=== PATIENT | female | born 1985 | race African-American/Black ===

== ENCOUNTER 2017-03-12 20:16 | Inpatient (IN) | payer OTHER ==
[~2017-03-12] VITALS: Ht 182.9 cm; Wt 122.0 kg
[~2017-03-12 20:16] MED LIST: MAGNSOL2 PO; MIRA3350 PO
[2017-03-13] MEDS ORDERED: ONDANSETRON HCL 4 MG/2 ML VIAL IV PUSH PRN
[2017-03-13] MEDS ORDERED: SODIUM CHLORIDE 0.9% FLUSH 10 ML FLUSH IV FLUSH PRN
[2017-03-13 00:11] VITALS: BP 124/78; PULSE 88; RESP 19; TEMP 96.2; O2SAT 93
[2017-03-13] MEDS: LACTATED RINGER'S 1000 ML INJ 1,000 ML IV SCH ×3 (00:16→16:00)
[2017-03-13] MEDS: KETOROLAC TROMETHAMINE 30 MG/ML (IVP) VIAL IV PUSH PRN ×3 (00:27→14:55)
[2017-03-13] MEDS: ACETAMINOPHEN 1000 MG/100 ML VIAL IV SCH ×4 (00:37→17:45)
[2017-03-13 04:00] VITALS: BP 122/66; PULSE 97; RESP 19; TEMP 98.2; O2SAT 96
--- NOTE | 2017-03-13 04:59 | MH ---
cc: TORRI ARAYA M.D. DATE OF ADMISSION: 03/12/2017 REASON FOR ADMISSION Small bowel obstruction. BRIEF HISTORY This is a very pleasant 31-year-old woman who over the last 5 years or so as had intermittent episodes of abdominal pain, nausea, emesis. They usually resolve fairly quickly. The last couple of days she has had increasing severe upper abdominal pain with distension and nausea with emesis of whatever she has eaten or drank. She works drawing patient's blood and when she was leaning over she got the feeling of severe sharp stabbing pain and the feeling of nausea that she might throw up. She was seen in the emergency department in [place] yesterday and felt she was constipated. They gave her MiraLax. She had continued worsening symptoms. She returned there where a CT scan was done which showed findings suggestive of small bowel obstruction with proximal dilated loops of small bowel, distal nondilated loops. Her only previous abdominal surgery is a tubal ligation about five years ago. She has had no other intervention. She has never had urinary tract infections and she denies dysuria. She has no upper respiratory symptoms. No one else in her family are close contacts or ill like she is. She has not been exposed to raw foods, uncooked foods or well water. ALLERGIES: NO KNOWN DRUG ALLERGIES. PAST MEDICAL HISTORY: Noncontributory other than having the tubal ligation and chronic intermittent constipation. She admits she runs dehydrated, does not drink enough water and does not urinate normal amounts. SOCIAL HISTORY: She denies present tobacco abuse. She quit 6-8 months ago. She denies alcohol abuse. She denies HIV or hepatitis risk factors. FAMILY HISTORY: Significant for rare blood cancer in her brother, recently diagnosed, also history of stomach cancer and breast cancer. No history of pulmonary problems, heart disease, diabetes, etc. REVIEW OF SYSTEMS: She denies unusual bleeding tendencies. She has no visual, hearing, sinus or swallowing problems. She denies chronic asthma, bronchitis, pneumonia. She has no history of heart disease, irregular heart beat or heart murmur. She denies no liver, kidney or female organ disorders, strokes, seizures, diabetes or thyroid gland problems. She has never taken blood thinning medications. PHYSICAL EXAMINATION: Vital signs: Showed temperature 97.7, pulse is 84, respiratory rate 18, blood pressure 127/70. Her O2 sats 96%. HEENT: She is normocephalic, atraumatic. Pupils are small liu-gm-[id number] and sluggishly reactive. They are round, sclerae are anicteric. Oropharynx is clear without mucosal lesions. She has good dentition and moist mucous membranes. NECK: Her neck is supple without adenopathy. She has a midline trachea. No jugular venous distension. LUNGS: Lung sounds are clear and equal anteriorly bilaterally. HEART: Heart sounds are regular without obvious murmur, rub or gallop. ABDOMEN: Her abdomen is obese. It is soft. It is mildly distended. It is mildly tender to palpation on the right side of the abdomen. There is no rebound or guarding. Difficult to discern infraumbilical small transverse scar from her tubal ligation. There is no obvious hernias. She does have bowel sounds, at first it sounds a little hyperactive but then sounded normoactive. I do not hear a high-pitched tinkling noises consistent with obstruction. EXTREMITIES: Her extremities show no cyanosis, clubbing or edema. She has equal radial and dorsalis pedis pulses. NEUROLOGIC: She is awake, alert, oriented, she has equal bilateral human resources hr representative strength and no gross motor or sensory deficit. LABORATORY DATA: White count is 12.7 with 78% neutrophils. Hemoglobin is 39, platelet counts of 324. Chemistry showed potassium of 3.8, creatinine of 1, with a BUN of 10, glucose is 85. Liver function tests are normal. No urinalysis has been performed. Her beta-hCG from the 16th was less than 1. Lipase at that time was 118. IMAGING STUDIES: Included a CT scan which showed suspicion for small bowel obstruction. There is some free fluid down in the dependent portion of the pelvis. There is no free air. ASSESSMENT The patient is a 31 old woman with history of tubal ligation who has findings suggestive of partial small-bowel obstruction, as she has had bowel movements all the way through this afternoon, so signs that she is not completely obstructed. Discussed with she and her plans for hydration, n.p.o. except for ice chips and sips of water, be up and walking around, follow her exam, follow her electrolytes, will get a flat and upright x-ray of the abdomen tomorrow. Will have non-narcotic pain medicines available to her except in the breakthrough situation where she will have a low dose of Dilaudid available. She and her understand the possibility she may get better without surgery and be able to be discharged. She may require further imaging studies with upper GI small bowel follow-through. She might require surgery initially through the laparoscopic approach for small bowel obstruction. I have answered all her questions. They are agreeable to the plan. MD ARIANE Ventura/ANA /12:00 AM /3:53 AM
[2017-03-13 06:06] LABS: BACTERIA, URINE OCC /hpf; BLOOD, URINE TRACE (NEG); GLUCOSE,URINE NEG (NEG); KETONE, URINE 40 mg/dL (NEG); MUCUS URINE MANY /lpf (OCC); NITRITE,URINE NEG (NEG); PH, URINE 6.5 (5.0-8.5); SQUAMOUS EPITHELIAL CELL URINE 4 /hpf (0-5); URINE COLOR YELLOW (YELLW/STRAW)
[2017-03-13 06:08] LABS: COMMENT (UR) CULT NOT INDICATED; CULTURE IF INDICATED CULT NOT INDICATED
[2017-03-13 06:20] LABS: BICARBONATE 25.6 MEQ/L (21.0-32.0); POTASSIUM 3.5 MEQ/L (3.5-5.1)
[2017-03-13 08:00] VITALS: BP 111/59; PULSE 108; RESP 19; TEMP 96.3; O2SAT 95
[2017-03-13] MEDS: SODIUM CHLORIDE 0.9% FLUSH 10 ML FLUSH IV FLUSH SCH (09:00)
[2017-03-13] MEDS: PANTOPRAZOLE SODIUM 40 MG VIAL IV SCH (09:11)
--- NOTE | 2017-03-13 11:01 | RADRPT ---
EXAM DATE/TIME: 03/13/2017 10:47 [facility] COMPARISON: No previous studies available for comparison. INDICATIONS : Patient states she has been obstructed for two days. MEDICAL HISTORY : None. SURGICAL HISTORY : None. ENCOUNTER: Subsequent ACUITY: 2 days PAIN SCORE: 6/10 LOCATION: Bilateral Abdomen. FINDINGS: Patient has known small bowel obstruction. There is mild gaseous distention of small bowel proximally with decompression distally characteristic of small bowel obstruction. No free air. CONCLUSION: 1. Small bowel obstruction with mild distention and air-fluid levels in the proximal small bowel and decompression distally. Obstruction does not appear complete. There is some residual contrast in deco mpressed colon related to CT performed on March 12. Peter Fragoso MD on March 13, 2017 at 10:57 Board Certified Radiologist. This report was verified electronically.
[2017-03-13 12:00] VITALS: BP 106/58; PULSE 71; RESP 16; TEMP 96.7; O2SAT 96
[2017-03-13 16:00] VITALS: BP 117/58; PULSE 74; RESP 15; TEMP 98.9; O2SAT 96
[2017-03-13 20:00] VITALS: BP 117/57; PULSE 62; RESP 17; TEMP 96.3; O2SAT 97
[2017-03-14] VITALS: BP 113/67; PULSE 70; RESP 16; TEMP 97.2; O2SAT 98
[2017-03-14] MEDS: KETOROLAC TROMETHAMINE 30 MG/ML (IVP) VIAL IV PUSH PRN ×4 (02:16→23:21)
[2017-03-14] MEDS: LACTATED RINGER'S 1000 ML INJ 1,000 ML IV SCH ×4 (02:16→21:14)
[2017-03-14] MEDS: ACETAMINOPHEN 1000 MG/100 ML VIAL IV SCH ×5 (06:30→23:21)
[2017-03-14 08:00] VITALS: BP 120/58; PULSE 66; RESP 14; TEMP 96.6; O2SAT 94
[2017-03-14] MEDS: PANTOPRAZOLE SODIUM 40 MG VIAL IV SCH (08:30)
[2017-03-14] MEDS: SODIUM CHLORIDE 0.9% FLUSH 10 ML FLUSH IV FLUSH SCH ×2 (08:36→21:14)
--- NOTE | 2017-03-14 11:45 | HHI.PR ---
Subjective Subjective Notes Resting in bed Feels thirsty Objective Vitals/I&O Vital Signs Date Time Temp Pulse Resp B/P Pulse Ox O2 Delivery O2 Flow Rate FiO2 03/14/17 08:00 96.6 66 14 120/58 94 Labs Laboratory Tests Test 03/14/17 03:56 Magnesium Level 2.1 Cardiovascular: Regular Lungs: Clear Abdomen: Non-distended, Other (mild tenderness with palpation in LUQ ) Extremities: No edema A/P Assessment and Plan 31 year old female with abdominal pain; PSBO -Start sips of clears -OOB and mobilize -IVF -Toradol and Dilaudid available for pain PRN -Continue non operative treatment Attending Statement has passed flatus. Took clears without nausea. No emesis. Still has upper abdominal discomfort, mild distention. Plan UGI with SBFT tomorrow, if kink or narrowing discovered, will consider Laparoscopy for adhesiolysis. Pt and agree and understand. The exam, history, and the medical decision-making described in the above note were completed with the assistance of the mid-level provider. I reviewed and agree with the findings presented. I attest that I had a [id number] encounter with the patient on the same day, and personally performed and documented my assessment and findings in the medical record. Edith Veloz Mar 14, 2017 11:45 Farhat Grant MD Mar 14, 2017 13:57
[2017-03-14 12:00] VITALS: BP 122/73; PULSE 77; RESP 18; TEMP 97; O2SAT 97
[2017-03-14] MEDS: MAGNESIUM CITRATE SOLN 300 ML BTL PO SCH ×2 (14:54→17:56)
[2017-03-14 16:00] VITALS: BP 121/74; PULSE 79; RESP 16; TEMP 97.5; O2SAT 98
[2017-03-14] MEDS: BISACODYL EC 5 MG TABEC PO SCH ×3 (17:56→21:05)
[2017-03-14 20:00] VITALS: BP 118/68; PULSE 79; RESP 18; TEMP 97.2; O2SAT 95
[2017-03-15] VITALS: BP 102/51; PULSE 78; RESP 18; TEMP 97.3; O2SAT 97
[2017-03-15 04:00] VITALS: BP 125/76; PULSE 72; RESP 18; TEMP 97.2; O2SAT 96
[2017-03-15] MEDS: KETOROLAC TROMETHAMINE 30 MG/ML (IVP) VIAL IV PUSH PRN ×2 (06:09→21:51)
[2017-03-15] MEDS: ACETAMINOPHEN 1000 MG/100 ML VIAL IV SCH ×3 (06:09→18:06)
[2017-03-15] MEDS: LACTATED RINGER'S 1000 ML INJ 1,000 ML IV SCH ×2 (06:10→09:49)
[2017-03-15 08:00] VITALS: BP 112/69; PULSE 75; RESP 16; TEMP 97.6; O2SAT 98
[2017-03-15] MEDS: SODIUM CHLORIDE 0.9% FLUSH 10 ML FLUSH IV FLUSH SCH ×2 (09:00→21:00)
[2017-03-15] MEDS: PANTOPRAZOLE SODIUM 40 MG VIAL IV SCH (09:45)
--- NOTE | 2017-03-15 13:13 | HHI.PR ---
Subjective Subjective Notes Seen in radiology, mid SBFT. Pt feeling better every day. She had tolerated her clear liquids without nausea or vomiting. She feels a little distended, but much better overall. Objective Vitals/I&O Vital Signs Date Time Temp Pulse Resp B/P Pulse Ox O2 Delivery O2 Flow Rate FiO2 03/15/17 08:00 97.6 75 16 112/69 98 03/15/17 04:00 Room Air Abdomen: Non-distended, Non-tender, Other (soft, less distended.) A/P Assessment and Plan partial SBO, appears improved. Images thus far demonstrate no significant distention, though contrast not into colon yet. Discussed with patient and TERRI Sharma, who will follow up on images later this afternoon- if no narrowing or blockage, can advance diet and anticipate DC tomorrow. If narrowing or obstruction demonstrated, will plan dx laparoscopy, adhesiolysis for tomorrow afternoon. Farhat Grant MD Mar 15, 2017 13:12
--- NOTE | 2017-03-15 14:07 | RADRPT ---
EXAM DATE/TIME: 03/15/2017 10:44 [facility] COMPARISON: CT ABDOMEN & PELVIS W CONTRAST, March 12, 2017, 19:20. INDICATIONS : Vomiting and upper abdominal pain for 5 days. Evaluate for partial small bowel obstruction. FLUORO TIME: 1.2 minutes IMAGE COUNT: 18 CONTRAST: Liquid E-Z Paque Barium Sulfate (60% w/v, 41% w/w) IMAGING TIME(S): 15 min, 30 min, 45 min, 1 hr, 1.5 hrs2hr, 2.5 hr MEDICAL HISTORY : None. SURGICAL HISTORY : Tubal ligation. ENCOUNTER: Subsequent ACUITY: 4 - 6 days PAIN SCORE: 4/10 LOCATION: Abdomen, upper quadrant. FINDINGS: Preliminary film is unremarkable. The stomach is grossly unremarkable. There is dilatation of the jejunum and proximal ileum. The valvulae appear somewhat prominent. The di stal ileum is not distended. The transition occurs in the right lower quadrant. A distinct cause for the transition is not clearly seen. All the opacified bowel seen up to 1-1/2 hour image is dilated. T he decompressed ileum is first opacified at 2 hours. Contrast is seen in the colon at 2 hours. The te rminal ileum could not be clearly identified given the overlap of bowel in the right lower quadrant. CONCLUSION: Suspected partial small bowel obstruction in the mid ileum in the right lower quadrant. The exact aris ology is not determined. Hector Bruce MD on March 15, 2017 at 13:53 Board Certified Radiologist. This report was verified electronically.
[2017-03-15] MEDS ORDERED: ceFAZolin 2 GM PREMIX 50 ML IV SCH (15:45)
[2017-03-15 16:00] VITALS: BP 124/87; PULSE 66; RESP 16; TEMP 97.9; O2SAT 98
[2017-03-15] MEDS ORDERED: CHLORHEXIDINE GLUCONATE 2 % 1 PACK (2 CLOTHS) TOPICAL PRN (19:15)
[2017-03-15] MEDS ORDERED: METOPROLOL TARTRATE 25 MG TAB PO PRN (19:15)
[2017-03-15] MEDS ORDERED: LACTATED RINGER'S 1000 ML IV PRN (19:15)
[2017-03-15] MEDS ORDERED: INSULIN HUMAN REGULAR 1,000 UNITS/10 ML VIAL SQ PRN (19:15)
[2017-03-15] MEDS ORDERED: SODIUM CHLORID 0.9% 500 ML IV PRN (19:15)
[2017-03-15] MEDS ORDERED: POVIDONE IODINE 5% (ANTISEPSIS KIT) 4 APPLICATIONS EACH NARE PRN (19:15)
[2017-03-15 20:00] VITALS: BP 134/73; PULSE 66; RESP 20; TEMP 98.1; O2SAT 97
[2017-03-16] VITALS: BP 118/54; PULSE 59; RESP 18; TEMP 97.1; O2SAT 96
[2017-03-16] MEDS: ACETAMINOPHEN 1000 MG/100 ML VIAL IV SCH ×5 (00:29→23:59)
[2017-03-16] MEDS: LACTATED RINGER'S 1000 ML INJ 1,000 ML IV SCH ×4 (00:35→18:35)
[2017-03-16] MEDS: SODIUM CHLORIDE 0.9% FLUSH 10 ML FLUSH IV FLUSH SCH ×2 (07:12→21:00)
[2017-03-16 08:00] VITALS: BP 130/86; PULSE 60; RESP 19; TEMP 97; O2SAT 97
--- NOTE | 2017-03-16 08:18 | HHI.PR ---
Subjective Subjective Notes ready for surgery this afternoon. All questions answered. Objective Vitals/I&O Vital Signs Date Time Temp Pulse Resp B/P Pulse Ox O2 Delivery O2 Flow Rate FiO2 03/16/17 00:00 97.1 59 18 118/54 96 03/15/17 19:00 Room Air Abdomen: Other (mildly tender, mildly distended. ) Extremities: No edema, Perfused A/P Assessment and Plan Partial SBO. Pt has had intermittent symptoms for 5 years. She desires laparoscopy. We discussed potential for adhesiolysis, SB Resection and open surgery. We discussed risks including bleeding, infection, injury to intra abdominal contents, possible open surgery, and DVT/PE, as well as expectations for recovery. She understands. Surgery scheduled for later this afternoon. Farhat Grant MD Mar 16, 2017 08:18
[2017-03-16] MEDS: PANTOPRAZOLE SODIUM 40 MG VIAL IV SCH (09:22)
[2017-03-16 12:00] VITALS: BP 139/75; PULSE 61; RESP 20; TEMP 97.4; O2SAT 96
[2017-03-16] MEDS ORDERED: NEOSTIGMINE 3 MG/3 ML SYR IV ONE (12:00)
[2017-03-16] MEDS ORDERED: PROPOFOL 200 MG/20 ML AMP IV ONE (12:00)
[2017-03-16] MEDS ORDERED: LACTATED RINGER'S 1000 ML INJ 1,000 ML IV ONE (12:00)
[2017-03-16] MEDS ORDERED: ONDANSETRON HCL 4 MG/2 ML VIAL IV PUSH ONE (12:00)
[2017-03-16] MEDS ORDERED: DO NOT ADM ANY ANTICOAGULANT DRUGS PRN (15:45)
[2017-03-16] MEDS ORDERED: MIDAZOLAM HCL 2 MG/2 ML VIAL ONE (15:49)
[2017-03-16] MEDS ORDERED: FAMOTIDINE 20 MG/2 ML VIAL ONE (15:49)
[2017-03-16] MEDS ORDERED: DEXAMETHASONE SOD PHOS 4 MG/ML VIAL ONE (15:50)
[2017-03-16 16:00] VITALS: BP 125/80; PULSE 52; RESP 19; TEMP 97.2; O2SAT 98
[2017-03-16] MEDS ORDERED: HYDROmorphone HCL PF 2 MG/ML VIAL ONE (16:11)
[2017-03-16] MEDS ORDERED: BUPIVACAINE/EPINEPHRINE 0.25% 50 ML VIAL INFIL ONE (16:50)
[2017-03-16 17:07] LABS: AUTOMATED NEUTROPHIL # 3.1 TH/MM3 (1.8-7.7); BASOPHIL % 0.5 % (0.0-2.0); EOSINOPHIL # 0.1 TH/MM3 (0-0.4); EOSINOPHIL % 1.3 % (0.0-4.0); HEMATOCRIT 30.4 % (35.0-46.0); HEMO FLAGS DIFF FINAL; LYMPH % 30.8 % (9.0-44.0); LYMPHOCYTE # 1.5 TH/MM3 (1.0-4.8); MEAN CELL VOLUME 88.9 FL (80.0-100.0); MEAN CORPUSCULAR HEMOGLOBIN 29.6 PG (27.0-34.0); MEAN CORPUSCULAR HGB CONC 33.3 % (32.0-36.0); MONO % 6.1 % (0.0-8.0); NEUT % 61.3 % (16.0-70.0); PLATELET COUNT 220 TH/MM3 (150-450); RED BLOOD COUNT 3.42 MIL/MM3 (4.00-5.30); RED CELL DISTRIBUTION WIDTH 12.5 % (11.6-17.2)
[2017-03-16] MEDS ORDERED: ACETAMINOPHEN/HYDROcodone 325 MG/5 MG TAB PO PRN (18:15)
[2017-03-16] MEDS ORDERED: MAGNESIUM HYDROXIDE SUSP 30 ML CUP PO PRN (18:15)
[2017-03-16] MEDS ORDERED: SODIUM CHLORIDE 0.9% FLUSH 10 ML FLUSH IV FLUSH PRN (18:15)
[2017-03-16] MEDS ORDERED: Post-op Orders (for Pharmacy) MISC XX ONE (18:15)
--- NOTE | 2017-03-16 18:17 | PD.OP ---
Operative Report Date of Surgery: Mar 16, 2017 Preoperative Diagnosis: partial small bowel obstruction Postoperative Diagnosis: same, secondary to tumor Procedure: diagnostic laparoscopy, mini laparotomy with SB resection Anesthesia: general Surgeon: Farhat Grant Nuisance Wildlife Specialist(s): Sara Ivey Operation and Findings: No intra abdominal adhesions, mid ileum a tumor was present at the transition point from non distended to distended small bowel.. Small bowel resected with 10 cm proximal and distal margins. EBL less than 25 ml. Farhat Grant MD Mar 16, 2017 18:17
[2017-03-16] MEDS ORDERED: fentaNYL CITRATE 250 MCG/5 ML AMP ONE (18:20)
[2017-03-16] MEDS ORDERED: *morphine SULFATE 8 MG/ML PERIprocedure ONLY ONE (18:32)
[2017-03-16] MEDS ORDERED: *HYDROmorphone PF 1 MG VIAL PERIprocedural Use ONLY ONE ×2 (18:48→19:35)
[2017-03-16 20:21] VITALS: BP 140/70; PULSE 80; RESP 17; TEMP 98.9; O2SAT 92
[2017-03-16 20:33] VITALS: O2SAT 92
[2017-03-16] MEDS: ACETAMINOPHEN/HYDROcodone 325 MG/5 MG TAB PO PRN (21:43)
[2017-03-17 00:12] VITALS: BP 132/67; PULSE 73; RESP 18; TEMP 97.3; O2SAT 97
[2017-03-17] MEDS: ACETAMINOPHEN/HYDROcodone 325 MG/5 MG TAB PO PRN ×5 (03:37→23:27)
[2017-03-17 04:39] VITALS: BP 111/55; PULSE 82; RESP 18; TEMP 97.5; O2SAT 97
[2017-03-17] MEDS: LACTATED RINGER'S 1000 ML INJ 1,000 ML IV SCH ×2 (05:06→14:05)
[2017-03-17] MEDS: HYDROmorphone HCL PF 1 MG/ML VIAL IV PUSH PRN ×3 (05:08→20:18)
[2017-03-17 05:25] LABS: BASOPHIL % 0.1 % (0.0-2.0); HEMO FLAGS DIFF FINAL; LYMPH % 7.5 % (9.0-44.0); LYMPHOCYTE # 0.9 TH/MM3 (1.0-4.8); MEAN CELL VOLUME 88.4 FL (80.0-100.0); MEAN CORPUSCULAR HEMOGLOBIN 29.9 PG (27.0-34.0); MEAN CORPUSCULAR HGB CONC 33.8 % (32.0-36.0); MONO % 4.7 % (0.0-8.0); NEUT % 87.7 % (16.0-70.0); PLATELET COUNT 235 TH/MM3 (150-450); RED BLOOD COUNT 3.73 MIL/MM3 (4.00-5.30); RED CELL DISTRIBUTION WIDTH 12.5 % (11.6-17.2); WHITE BLOOD COUNT 12.6 TH/MM3 (4.0-11.0)
[2017-03-17 05:57] LABS: BICARBONATE 27.9 MEQ/L (21.0-32.0); POTASSIUM 4.3 MEQ/L (3.5-5.1)
[2017-03-17] MEDS: ACETAMINOPHEN 1000 MG/100 ML VIAL IV SCH ×2 (06:52→12:11)
--- NOTE | 2017-03-17 07:11 | HHI.PR ---
Subjective Subjective Notes pain meds effective, got some rest last night, got up to bedside commode to void. No nausea. Objective Vitals/I&O Vital Signs Date Time Temp Pulse Resp B/P Pulse Ox O2 Delivery O2 Flow Rate FiO2 03/17/17 04:39 97.5 82 18 111/55 97 03/17/17 03:33 Nasal Cannula 2.00 Labs Laboratory Tests Test 03/16/17 03/17/17 16:45 04:37 White Blood Count 5.0 12.6 Red Blood Count 3.42 3.73 Hemoglobin 10.1 11.2 Hematocrit 30.4 33.0 Mean Corpuscular Volume 88.9 88.4 Mean Corpuscular Hemoglobin 29.6 29.9 Mean Corpuscular Hemoglobin 33.3 33.8 Concent Red Cell Distribution Width 12.5 12.5 Platelet Count 220 235 Mean Platelet Volume 9.0 8.9 Neutrophils (%) (Auto) 61.3 87.7 Lymphocytes (%) (Auto) 30.8 7.5 Monocytes (%) (Auto) 6.1 4.7 Eosinophils (%) (Auto) 1.3 0.0 Basophils (%) (Auto) 0.5 0.1 Neutrophils # (Auto) 3.1 11.0 Lymphocytes # (Auto) 1.5 0.9 Monocytes # (Auto) 0.3 0.6 Eosinophils # (Auto) 0.1 0.0 Basophils # (Auto) 0.0 0.0 CBC Comment DIFF FINAL DIFF FINAL Differential Comment Sodium Level 141 Potassium Level 4.3 Chloride Level 105 Carbon Dioxide Level 27.9 Anion Gap 8 Blood Urea Nitrogen 3 Creatinine 0.60 Estimat Glomerular Filtration 139 Rate Random Glucose 94 Calcium Level 8.9 Cardiovascular: Regular Lungs: Clear Abdomen: Non-distended, Other (dressing dry with tiny spot of drainage. BS normal.), Post-op tenderness Extremities: No edema, Perfused, SCD's on A/P Assessment and Plan POD 1 s/p dx laparoscopy, small bowel resection for SB tumor . Stable postop. On fulls, advance as tolerated as she progresses. Needs to walk halls every day , she and understand. Farhat Grant MD Mar 17, 2017 07:11
[2017-03-17 08:00] VITALS: BP 121/74; PULSE 102; RESP 17; TEMP 96.4; O2SAT 93
[2017-03-17] MEDS: PANTOPRAZOLE SODIUM 40 MG VIAL IV SCH (08:13)
[2017-03-17] MEDS: SODIUM CHLORIDE 0.9% FLUSH 10 ML FLUSH IV FLUSH SCH ×2 (08:13→20:18)
[2017-03-17 12:00] VITALS: BP 125/67; PULSE 88; RESP 16; TEMP 97.1; O2SAT 95
[2017-03-17 16:00] VITALS: BP 108/55; PULSE 84; RESP 16; TEMP 97.3; O2SAT 94
--- NOTE | 2017-03-17 17:00 | MP ---
cc: TORRI ARAYA M.D. DATE OF SURGERY: 03/16/2017 PREOPERATIVE DIAGNOSIS Partial small-bowel obstruction. POSTOPERATIVE DIAGNOSIS Partial small bowel obstruction secondary to tumor. PROCEDURE Diagnostic laparoscopy, mini laparotomy with small bowel resection. SURGEON Dr. Torri Araya ANESTHESIA General. INDICATIONS This is a pleasant 31-year-old woman who was admitted with a diagnosis of partial small bowel obstruction. She improved somewhat but upper GI small bowel follow-through demonstrated findings suggestive of a partial obstruction. Due to symptoms that had been on and off over the last five years, recommendations were made for diagnostic laparoscopy, adhesiolysis, possible open surgery, possible small bowel resection. INTRAOPERATIVE FINDINGS No intra-abdominal adhesions. In the midileum, a tumor was present at the transition point from distended to nondistended small bowel. The small bowel was resected with 10 cm proximal distal margins. Estimated blood loss less than 25 mL. Primary anastomosis performed. DESCRIPTION OF PROCEDURE IN DETAIL The patient identified as Yara Lira, taken to the operating room and placed in supine position. Sequential compression devices were placed on bilateral lower extremities. Following induction of adequate general endotracheal anesthesia, the patient's abdomen was prepped and draped in the usual sterile fashion with Betadine. A timeout procedure was performed. Following completion of time-out procedure to everyone's satisfaction within the room, 0.25% Marcaine with epinephrine was injected at each incision site. A supraumbilical 2-cm vertical incision was carried out with a scalpel, dissection continued posterior to the level of midline fascia. The base of the umbilicus was retracted anteriorly. The fascia was incised in vertical fashion allowing for entry in the peritoneal cavity with the surgeon's finger. The [employer] balloon [place] trocar was placed in the peritoneal cavity and its balloon inflated with CO2 insufflation until a level of 15 mmHg ensued. The patient was placed in a slight Trendelenburg position and two infraumbilical midline 5-mm trocars were placed in the peritoneal cavity under direct laparoscopic view after incision of the skin with a scalpel. Blunt graspers were used to identify the appendix and cecum and the ileocecal valve, the distal ileum was not decompressed. It was run proximally until the tumor was identified, at this point there was a transition from a nondilated to dilated proximal small bowel. It was determined this would require resection. Intraabdominally, additional findings showed a leiomyoma of the uterus. Both ovaries appeared normal, there was a small cyst on the left ovary which appeared normal and physiologic. Evidence of tubal ligation was present. There was no scar to the tubal ligation site. No other intraabdominal abnormalities were identified. An infraumbilical mini-laparotomy was performed between the two 5-mm trocar sites after installation of local anesthetic. A scalpel was used to create the incision. Electrocautery was used for hemostasis and dissection through a very generous subcutaneous fatty tissue layer. The fascia was incised using the electrocautery and entry in the peritoneal cavity was facilitated first with the surgeon's finger, and then the peritoneal incision was opened the length of the skin incision. A small Tenzin wound protector and retractor was placed in the standard fashion, and the small bowel was brought into the surgical wound. The area of the tumor and transition point was easily identifiable. About 10 cm proximal and distal to the tumor a window in the mesentery was created with electrocautery, and the linear cutting stapling device blue load was fired to divide the small bowel. Harmonic wave was then used to resect a pie-shaped piece of the small bowel mesentery and the specimen was passed off field for pathologic evaluation. A functional end-to-end, [id number] anastomosis was then performed using the linear cutting stapling device and the TX stapling device. A 3-0 silk suture was placed at the distal staple line. The staple lines were imbricated with 3-0 silk sutures, and the mesenteric defect was approximated with interrupted tuqvpw-[id number] 3-0 silk sutures. The wound was irrigated copiously with saline. There was no evidence of bleeding. The anastomosis which was palpably patent was returned to the peritoneal cavity and covered with the omentum. The Tenzin wound retractor was removed and the fascia was approximated with a running #1 PDS suture. Subcutaneous space was irrigated copiously with saline. Supraumbilical trocar site was closed with interrupted 0 Vicryl sutures. Port site was irrigated with saline. The infraumbilical subcutaneous fatty tissue was approximated with interrupted 2-0 Vicryl sutures, and the skin incisions were approximated with 4-0 Monocryl subcuticular sutures. Dressing was applied with Mastisol, inch-brown Steri-Strips and a Primacor dressing covered the two incisions. The patient tolerated the procedure without apparent complication. Sponge, needle and instrument counts were correct at the end of the case. MD ARIANE Ventura/BJFredrick /6:18 PM /4:26 PM
[2017-03-17] MEDS: ENOXAPARIN SODIUM 40 MG/0.4 ML SYRINGE SQ SCH (17:01)
[2017-03-17 20:29] VITALS: BP 119/66; PULSE 78; RESP 17; TEMP 98.1; O2SAT 96
[2017-03-18] VITALS (8 sets, daily range): BP systolic 118–167; BP diastolic 58–78; PULSE 74–94; RESP 16–20; TEMP 97.3–98.5; O2SAT 92–98
[2017-03-18] MEDS: PANTOPRAZOLE SODIUM 40 MG VIAL IV SCH (08:04)
[2017-03-18] MEDS: ACETAMINOPHEN/HYDROcodone 325 MG/5 MG TAB PO PRN ×2 (08:04→17:32)
[2017-03-18] MEDS: SODIUM CHLORIDE 0.9% FLUSH 10 ML FLUSH IV FLUSH SCH ×2 (08:05→22:30)
[2017-03-18] MEDS ORDERED: ACETAMINOPHEN 1000 MG/100 ML VIAL IV SCH ×2 (09:00)
[2017-03-18] MEDS: HYDROmorphone HCL PF 1 MG/ML VIAL IV PUSH PRN (11:06)
[2017-03-18] MEDS ORDERED: NORC5TAB PO (11:54)
--- NOTE | 2017-03-18 13:46 | HHI.PR ---
Subjective Subjective Notes DAILY PROGRESS NOTE FOR SURGICAL ATTENDING, DR. YUSRA PAK Resting in bed Pain controlled Has done several laps in the hallway today Objective Vitals/I&O Vital Signs Date Time Temp Pulse Resp B/P Pulse Ox O2 Delivery O2 Flow Rate FiO2 03/18/17 12:00 97.3 83 17 118/74 92 03/18/17 08:40 Room Air 03/17/17 03:33 2.00 Labs Laboratory Tests Test 03/14/17 03/17/17 03:56 04:37 Magnesium Level 2.1 MG/DL White Blood Count 12.6 TH/MM3 Red Blood Count 3.73 MIL/MM3 Hemoglobin 11.2 GM/DL Hematocrit 33.0 % Mean Corpuscular Volume 88.4 FL Mean Corpuscular Hemoglobin 29.9 PG Mean Corpuscular Hemoglobin 33.8 % Concent Red Cell Distribution Width 12.5 % Platelet Count 235 TH/MM3 Mean Platelet Volume 8.9 FL Neutrophils (%) (Auto) 87.7 % Lymphocytes (%) (Auto) 7.5 % Monocytes (%) (Auto) 4.7 % Eosinophils (%) (Auto) 0.0 % Basophils (%) (Auto) 0.1 % Neutrophils # (Auto) 11.0 TH/MM3 Lymphocytes # (Auto) 0.9 TH/MM3 Monocytes # (Auto) 0.6 TH/MM3 Eosinophils # (Auto) 0.0 TH/MM3 Basophils # (Auto) 0.0 TH/MM3 CBC Comment DIFF FINAL Differential Comment Sodium Level 141 MEQ/L Potassium Level 4.3 MEQ/L Chloride Level 105 MEQ/L Carbon Dioxide Level 27.9 MEQ/L Anion Gap 8 MEQ/L Blood Urea Nitrogen 3 MG/DL Creatinine 0.60 MG/DL Estimat Glomerular Filtration 139 ML/MIN Rate Random Glucose 94 MG/DL Calcium Level 8.9 MG/DL Radiology Last Impressions Small Bowel X-Ray 03/15/17 0000 Signed Impressions: Service Date/Time: Wednesday, March 15, 2017 10:44 - CONCLUSION: Suspected partial small bowel obstruction in the mid ileum in the right lower quadrant. The exact etiology is not determined. Hector Bruce MD Abdomen X-Ray 03/13/17 0600 Signed Impressions: Service Date/Time: Monday, March 13, 2017 10:47 - CONCLUSION: 1. Small bowel obstruction with mild distention and air-fluid levels in the proximal small bowel and decompression distally. Obstruction does not appear complete. There is some residual contrast in decompressed colon related to CT performed on March 12. Yusra Fragoso MD Cardiovascular: Regular Lungs: Clear Abdomen: Other (midline incision; dressing removed; lap sites c/d/i with Steri strips ) Extremities: No edema A/P Assessment and Plan 31 year old female with abdominal pain; PSBO; POD1 dx laparoscopy, small bowel resection for SB tumor -Advance to regular diet -OOB and mobilize -DC IVF -Pain control---wean off IV pain medications -Await pathology -Plan for DC tomorrow if pain controlled; rx for [place] on the chart Discharge Planning Possibly an a.m. Attending Statement NOTE FOR SURGICAL ATTENDING, DR. YUSRA PAK Patient appears to be progressing nicely possible discharge on Tuesday I agree with above assessment and plan. The exam, history, and the medical decision-making described in the above note were completed with the assistance of the mid-level provider. I reviewed and agree with the findings presented. I attest that I had a [id number]-[id number] encounter with the patient on the same day, and personally performed and documented my assessment and findings in the medical record. The following services were provided during this hospital visit: Chart data review, vital sign assessments/reviewing monitor data Review of consultations notes if present. Medication orders/review and/or management Ordering and/or reviewing lab tests Ordering and/or interpreting/reviewing x-rays and/or diagnostic studies Care of the patient and discussion of the patient with the care team Documentation time To help prompt me to consider important information that might be impacting today's encounter and assessment, information from prior notes written by myself or my colleagues may have been "brought forward/copy and pasted" into today's note. Edith Veloz Mar 18, 2017 13:46 Yusra Pak MD Mar 18, 2017 13:48
[2017-03-18] MEDS: ENOXAPARIN SODIUM 40 MG/0.4 ML SYRINGE SQ SCH (17:32)
[2017-03-19] MEDS: ACETAMINOPHEN/HYDROcodone 325 MG/5 MG TAB PO PRN ×2 (02:41→13:04)
[2017-03-19 08:00] VITALS: BP 121/78; PULSE 78; RESP 16; TEMP 97; O2SAT 95
[2017-03-19] MEDS: SODIUM CHLORIDE 0.9% FLUSH 10 ML FLUSH IV FLUSH SCH (08:59)
[2017-03-19] MEDS: PANTOPRAZOLE SODIUM 40 MG VIAL IV SCH (08:59)
== END 2017-03-19 13:27 | disposition home or self-care (01) | DRG 345 ==
LOC: NEDDLT 20:16 → UNDOADMIN 22:22 → N07B 22:22 → UNDOADMIN 22:32 → N07B 03-14 22:10 → N07A 03-14 22:10
PROVIDERS: ADMIT Surgery Trauma Surgery; ATTEND Surgery Trauma Surgery
PROC: 0DBB0ZX Excision of Ileum, Open Approach, Diagnostic (ICD-10-PCS; principal; 2017-03-16 16:20)
PROC: 0WJP4ZZ Inspection of Gastrointestinal Tract, Percutaneous Endoscopic Approach (ICD-10-PCS; 2017-03-16 16:20)
DX: C7A.012 Malignant carcinoid tumor of the ileum (principal); K56.69 Other intestinal obstruction; D25.9 Leiomyoma of uterus, unspecified; N83.202 Unspecified ovarian cyst, left side; Z98.51 Tubal ligation status
CPT/HCPCS: 74020; 74177; 74250; 76937; 80048; 80053; 81001; 83735; 85025; 88307; 88309; 94150; C9113; J0131; J0690; J1100; J1170; J1650; J1885; J2250; J2270; J2405; J2710; J3010; J7030; J7120; Q9963; Q9967